=== PATIENT | female | born 1975 | race Caucasian/White ===

== ENCOUNTER 2022-10-13 07:51 | Emergency (ER) | payer BC, SELFPAY ==
[2022-10-13 07:55] VITALS: BP 102/75; PULSE 102; RESP 15; TEMP 37.2; O2SAT 98
--- NOTE | 2022-10-13 08:35 | ED.GENADUL_ITS ---
Discharge Plan Disposition Patient Disposition: Home Discharge Details Clinical Impression: URI (upper respiratory infection) Primary Care Provider: Unknown,Unknown ED Provider: Angelo Wiley Home Meds and New Rx's Prescriptions: New benzonatate 200 mg capsule 200 mg PO TID PRN (Reason: cough) Qty: 30 0RF Continued conj estrog-medroxyprogest lino 0.45-1.5 mg tablet 1 tab PO DAILY ofloxacin [Ocuflox] 0.3 % drops See Rx Instructions ophthalmic (eye) .COMPLEX Qty: 10 0RF Rx Instructions: put 2 drps into both eye(s) every 2 h x 2 days while awake, then 2 drps 4 times/day days 3-7 ophthalmic (eye) Discharge Instructions Instructions: Upper Respiratory Infection (ED) Additional Instructions: Continue to stay well-hydrated and get plenty of rest. You may use [id number] medications as discussed along with the prescribed cough suppressant. If you not seen in signs of improvement or have any worsening after 7 days of symptoms feel free to return the emergency department for reassessment otherwise follow-up with local urgent care or primary care provider for recheck of symptoms. Referrals: Primary Care Provider [Outside] Medical Decision Making Patient presenting to the emergency department for chief complaint of sore throat, hoarse voice, cough, nasal congestion along with some fever chills and body aches. Patient and family state that this started on Monday and has progressed throughout the week. Significant other does state that he had mild nasal congestion for a day or so that seem to resolve. Patient has been taking [id number] acetaminophen or Motrin for fevers or body aches. Patient was recently seen at urgent care for stye and placed on antibiotic drops which has improved symptoms. Patient otherwise has no significant past medical history. Physical exam is consistent with upper respiratory tract infection/ Pharyngitis. no signs of deep neck space infection ( Retropharyngeal abscess, Roosevelt's angina, Parapharyngeal space infection, Peritonsillar Abscess ([employer])) or Epiglottitis. Pt non toxic and stable. Review of vital signs show some subtle tachycardia otherwise stable vital signs with patient having no hypoxia afebrile and normotensive. We will check patient for COVID flu and RSV. Patient given single dose of Decadron and Tessalon Perles to help with symptoms and patient will otherwise orally hydrate. Reviewed labs and patient is negative for COVID flu and RSV. Discussed conservative management of viral symptoms with patient along with return and follow-up precautions. After discussion of diagnosis and plan of care patient has no further needs, questions, or concerns and states clear understanding to return to the emergency department for any worsening symptoms. This documentation was generated using [employer] system, please disregard any oddities of phrase or misspellings. Medical Records Medical records reviewed: Yes I reviewed the patient's medical records. Medical records narrative: Reviewed recent urgent care note Lab Data Lab results reviewed: Yes I reviewed the patient's lab results. HPI General Mode of arrival: ambulatory . Date/Time Provider Initiated Documentation: 10/13/22 08:01 . Limitations to Documentation: no limitations . Information obtained by: patient and RN notes reviewed . History of Present Illness 47 year old F presents to the emergency department with the chief complaint of Sore throat, laryngitis, cough, described as moderate, with intensity rated at 6. Quality is described as aching, and is localized to the chest (With coughing). Patient reports no radiation. Patient started experiencing this day(s) (4) and it has been constant. No relieving factors improve symptom(s), No exacerbating factors reported . Patient did receive the following treatments prior to arrival, NSAID Related Data Home Medications Medication Instructions Recorded Confirmed conj estrogen-medroxyprogesterone 1 tab PO DAILY 10/10/22 10/13/22 0.45 mg-1.5 mg tablet ofloxacin 0.3 % eye drops (Ocuflox) See Rx Instructions ophthalmic 10/10/22 10/13/22 (eye) .COMPLEX #10 mL benzonatate 200 mg capsule 200 mg PO TID PRN cough #30 caps 10/13/22 Previous Rx's Medication Instructions Recorded ofloxacin 0.3 % eye drops (Ocuflox) See Rx Instructions ophthalmic 10/10/22 (eye) .COMPLEX #10 mL benzonatate 200 mg capsule 200 mg PO TID PRN cough #30 caps 10/13/22 Allergies Allergy/AdvReac Type Severity Reaction Status Date / Time amoxicillin [From Augmentin] Allergy Severe Verified 10/13/22 08:00 clavulanic acid Allergy Severe Verified 10/13/22 08:00 [From Augmentin] General Stated Complaint: RespSymp RAMONA: 4 Review of Systems Constitutional Constitutional: Reports body ache(s), Reports chills, Reports fever(s), Reports headache(s), Reports lethargy and Reports malaise Eyes Eyes: Denies eye discharge and Denies irritation ENT Ears, Nose, Mouth, and Throat: Denies otalgia, Reports headache(s), Reports hoarseness, Reports nasal congestion, Reports odynophagia and Reports sore throat Cardiovascular Cardiovascular: Denies chest pain and Denies dyspnea Respiratory Respiratory: Reports chest congestion, Reports cough, Reports pain with cough and Denies dyspnea Gastrointestinal Gastrointestinal: Denies diarrhea, Reports odynophagia and Denies vomiting Integumentary/Breasts Skin/Breast: Denies erythema and Denies rash Neurologic Neurologic: Reports headache(s) PFSH All Active Problems (Updated 10/13/22 @ 09:01 by Angelo Wiley NP) URI (upper respiratory infection) (Acute) Social History Smoking/Tobacco Use Status: Never Smoking risk assessment performed?: Yes Alcohol Intake: current Drug use: Never Substance use type: does not use Exam Const General: cooperative, comfortable and no acute distress Orientation: alert and awake HENMT Head: normal to inspection, normocephalic and atraumatic Ears: hearing grossly normal bilaterally and TM's normal bilaterally General nose exam: external nose normal Face and sinus: normal facial exam and no erythema Mouth: oral mucosae normal, lip normal, tongue normal, no drooling, no muffled voice and no trismus Throat: posterior oropharynx normal, tonsils normal, uvula midline and no uvular edema Neck Neck: normal visual inspection, full ROM, no lymphadenopathy, no meningeal signs, trachea midline and supple Resp Effort & Inspection: normal respiratory effort, able to speak in complete sentences and cough Quality of cough: dry Auscultation: clear to auscultation bilaterally Cardio Rate: regular rate Rhythm: regular rhythm Heart Sounds: S1 normal, S2 normal, normal S1 and S2, no click, no gallops, no murmurs and no rubs Skin General skin exam: no rashes or lesions noted and dry skin (warm) Neuro General: patient alert, patient awake, patient oriented x3, gait normal and moves all extremities Cognition: normal cognition Speech: speech normal Course Vital Signs Vital signs: Vital Signs Temperature 37.2 C 10/13/22 07:55 Pulse 102 H 10/13/22 07:55 Respiratory Rate 15 10/13/22 07:55 Blood Pressure 102/75 10/13/22 07:55 Pulse Oximetry 98 10/13/22 07:55 Temperature 37.2 C 10/13/22 07:55 Temperature Source Temporal Artery Scan 10/13/22 07:55 Pulse 102 H 10/13/22 07:55 Respiratory Rate 15 10/13/22 07:55 Respiratory Effort Non-Labored, Short of Breath 10/13/22 07:59 Respiratory Depth Normal 10/13/22 07:59 Blood Pressure 102/75 10/13/22 07:55 Blood Pressure Position Sitting 10/13/22 07:55 Pulse Oximetry 98 10/13/22 07:55 Oxygen Delivery Method Room Air 10/13/22 07:55 Oxygen Flow Rate 0 10/13/22 07:55 Pain Level 8 10/13/22 07:55 PAWSS Have you Been Recently Intoxicated or Drunk Within the Last 30 days?: No Have you Ever Experienced Previous Episodes of Alcohol Withdrawal?: No Have you ever Experienced Withdrawal Seizures?: No Have you ever Experienced Delirium Tremens(DT)s?: No Have you ever undergone Alcohol Rehabilitation Treatment (i.e, inpt ot outpatient treatment programs)?: No Have you ever Experienced Blackouts?: No Have you ever Combined Alcohol with other Downers within the last 90 days?: No Have you ever Combined Alcohol with any other Substance of Abuse during the last 90 days?: No Result: 0
[2022-10-13] MEDS: Dexamethasone 10 MG/ML VIAL PO (08:38)
[2022-10-13] MEDS: Benzonatate 100 MG CAP PO (08:39)
[2022-10-13 08:50] LABS: COVID-19 PCR Negative (Negative); Influenza A PCR Negative (Negative); Influenza B PCR Negative (Negative); RSV PCR Negative (Negative)
[2022-10-13 08:51] LABS: Source Nasopharynx
== END 2022-10-13 09:08 | disposition home or self-care (01) ==
PROVIDERS: Emergency Provider Nurse Practitioner Family; PCP Family Medicine
DX: R05.9 Cough, unspecified (principal); J02.9 Acute pharyngitis, unspecified; J06.9 Acute upper respiratory infection, unspecified; Z20.822 Contact with and (suspected) exposure to COVID-19
CPT/HCPCS: 87637; 99283; J1100

== ENCOUNTER → 2023-10-12 00:10 | Outpatient (CLI) | payer BC, SELFPAY ==
--- NOTE | 2023-10-12 | DI.MAMMO_ITS ---
Exam(s) MAMMO SCREENING EXAM: MAMMO SCREENING CLINICAL HISTORY: Z12.39, Z00.00,Z80.3, screening FX hx Breast CA TECHNIQUE: Mammograms were interpreted according to the usual protocol including computer analysis w [employer] CAD system, tomosynthesis and C-view imaging. COMPARISON: None. Baseline examination. FINDINGS: The breasts are composed of heterogeneously dense fibroglandular densities, Breast Density category C . No suspicious masses or suspicious microcalcifications are seen. No skin thickening or abnormal axillary lymph nodes are seen. IMPRESSION: BI-RADS Category 1, Negative mammogram. Yearly screening mammography is recommended. Breast Density Category C, heterogeneously Dense. The mammogram demonstrates the patient's breast tissue is dense. Dense breast tissue is very common a nd is not abnormal but dense breast tissue can make it harder to find cancer on a mammogram. Also, de nse breast tissue may increase breast cancer risk. This information about the result of the mammogram report was provided to the patient to raise their awareness. Use this report when you speak with the patient about their risks for breast cancer, which includes their family history. At that time, you may recommend additional screening tests (Ultrasound or MRI) as they might be useful based on their r isk. A negative radiographic report should not delay biopsy if a dominant or clinically suspicious mass is present. Up to ten percent of cancers are not identified on mammography. A negative report may reinforce clinical impression. Adenosis and dense breasts may obscure an underlying neoplasm. False positive reports average 6 to 10%.
== END ==
PROVIDERS: PCP Student in an Organized Health Care Education/Training Program; Visit Provider Student in an Organized Health Care Education/Training Program
DX: Z12.31 Encounter for screening mammogram for malignant neoplasm of breast (principal); Z80.3 Family history of malignant neoplasm of breast
CPT/HCPCS: 77063; 77067

== ENCOUNTER → 2023-12-02 13:16 | Outpatient (REF) | payer BC, SELFPAY ==
--- NOTE | 2023-12-02 13:30 | DI.RAD_ITS ---
Exam(s) XR TOE RT GREAT EXAM: XR TOE RT GREAT CLINICAL HISTORY: toe injury, r/u fracture. TECHNIQUE: 2D digital imaging was performed. COMPARISON: No exams were available for comparison FINDINGS: BONES: No acute fracture is present. No bony destructive lesion is seen. JOINTS: No dislocation present. SOFT TISSUE: Normal. IMPRESSION: No evidence of acute fracture, dislocation, or subluxation. DATA REPOSITORY: RADIATION DOSE DELIVERED:
--- NOTE | 2023-12-02 15:01 | DI.VRAD_ITS ---
PROCEDURE INFORMATION: Exam: XR Right Toe(s) Exam date and time: 12/02/2023 1:44 PM Age: 48 years old Clinical indication: Injury or trauma; Other: Toe injury, r/u fracture; Blunt trauma; Toes; Right TECHNIQUE: Imaging protocol: Radiologic exam of the right toes. Views: Minimum 2 views. COMPARISON: No relevant prior studies available. FINDINGS: Bones/joints: Bony mineralization is within normal limits. No acute fracture is visualized. Soft tissues: There is soft tissue swelling of the great toe. No radiopaque foreign object is identified. IMPRESSION: Soft tissue swelling. No acute fracture visualized. Dictated and Authenticated by: Lis Lewis MD. Ordering:LAURITA Nguyen MD
== END ==
LOC: DI 13:16
PROVIDERS: PCP Student in an Organized Health Care Education/Training Program; Visit Provider Physician Assistant
DX: S99.929A Unspecified injury of unspecified foot, initial encounter (principal)
CPT/HCPCS: 73660